=== PATIENT | male | born 1990 | race Two or more races ===

== ENCOUNTER 2022-07-16 06:42 | Emergency (ER) | payer OTHER ==
[~2022-07-16] VITALS: Ht 180.3 cm; Wt 109.1 kg
[2022-07-16 07:02] VITALS: BP 144/81
== END 2022-07-16 08:56 | disposition left against medical advice (07) ==
LOC: ER 06:42
DX: S61.411A Laceration without foreign body of right hand, initial encounter (principal); Z53.21 Procedure and treatment not carried out due to patient leaving prior to being seen by health care provider; W26.0XXA Contact with knife, initial encounter; Y93.89 Activity, other specified; Y92.89 Other specified places as the place of occurrence of the external cause; Y99.8 Other external cause status